=== PATIENT | male | born 1955 | race Caucasian/White ===

== ENCOUNTER 2021-06-29 01:12 | Outpatient (CLI) | payer MEDICARE, SELFPAY ==
[2021-06-29 13:10] LABS: Source Nasal/Nares
[2021-06-29 17:02] LABS: COVID-19 PCR Negative (Negative)
== END 2021-06-29 01:13 | disposition home or self-care (01) ==
LOC: LBO 01:12
PROVIDERS: Family Medicine; PCP Family Medicine; Visit Provider Speech-Language Pathologist
DX: Z20.822 Contact with and (suspected) exposure to COVID-19 (principal)
CPT/HCPCS: 87635; U0005

== ENCOUNTER 2021-07-13 02:40 | Outpatient (CLI) | payer MEDICARE, SELFPAY ==
[2021-07-13 19:41] LABS: COVID-19 PCR Negative (Negative)
[2021-07-13 22:26] LABS: Source Nasopharynx
== END 2021-07-13 02:41 | disposition home or self-care (01) ==
PROVIDERS: PCP Family Medicine; Visit Provider Speech-Language Pathologist
DX: Z20.01 Contact with and (suspected) exposure to intestinal infectious diseases due to Escherichia coli (E. coli) (principal); Z20.822 Contact with and (suspected) exposure to COVID-19
CPT/HCPCS: 87635; U0005

== ENCOUNTER → 2021-07-14 01:42 | Outpatient (CLI) | payer MEDICARE, SELFPAY ==
--- NOTE | 2021-07-14 10:30 | ST.MBS_ITS ---
Date of Service Date of service: 07/14/21 Time of Service: 10:30 Modified Barium Swallow Study Findings: Videofluoroscopic Swallowing Evaluation / Modified Barium Swallow Study (VFSE/MBSS) Speech Language Pathology Report ? [place] Dr. 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 SUBJECTIVE: Ruy arrived on time, ambulating independently, unaccompanied. He reports that his only complaint currently remains related to pain with extensive voice use and when eating/drinking acidic foods/drinks (citrus) due to ulceration near his larynx. When further questioned, he does endorse some sensation of pharyngeal stasis which he reports has been a long time, even before any of this. OBJECTIVE: Videofluoroscopic Swallow Evaluation (VFSE/MBSS) was conducted in the lateral projection by Speech-Language Pathologist, in collaboration with Radiologist, to evaluate oropharyngeal swallow function. Anatomic view under fluoroscopy: WFL ? PO barium contrast trials: Oral barium water soluble contrast was administered as follows: IDDSI Level 0 Varibar thin liquid (40% w/v) IDDSI Level 4 Varibar pudding/pureed/extremely thick (40% w/v) IDDSI Level 7 Regular Solid: 1/2 morgan cracker coated in 3 mL Varibar pudding; ? PHYSIOLOGIC FINDINGS Oral Phase 1 Lip Closure: 0-No labial escape 2 Tongue Control: 2- Posterior escape of less than half of bolus ? 3 Bolus Preparation/Mastication: 0- Timely and efficient chewing/mashing ? 4 Bolus Transport/Lingual Motion: 1- Delayed initiation of tongue motion (borderline) ? 5 Oral residue: 1- Trace residue lining oral structures 2- Residue collection on oral structures (noting x2 piecemeal deglutition of puree) Location: tongue ? 6 Initiation of pharyngeal swallow:? Variable: 1- Bolus head in valleculae 2- Bolus head at posterior laryngeal surface of epiglottis ? ? Pharyngeal Phase ? 7 Velar Elevation: 0- No bolus between soft palate and pharyngeal wall ? 8 Laryngeal Elevation:? 1- Partial superior movement of thyroid cartilage with partial approximation of arytenoids to epiglottic petiole 9 Anterior Hyoid Excursion: 1- Partial anterior movement (increases with bolus size) 10 Epiglottic Movement:? 1- Partial? inversion ? 11 Laryngeal Vestibule Closure: 1- Incomplete; narrow column of air/contrast in laryngeal vestibule (consecutive sips only) Penetration (observed only during consecutive/large volume sips thin liquids) occurs during initial swallow onset from current bolus 12 Pharyngeal Stripping Wave:? 1- Present; diminished 13 Pharyngeal Contraction: DNT; lack of AP view ? 14 PES/UES Opening:? 0- Complete distension and complete duration; no obstruction of flow 15 Tongue Base Retraction: 2- Narrow column of contrast between tongue base and posterior pharyngeal wall ? 16 Pharyngeal residue:? 2- Collection of residue within or on pharyngeal structures (primarily with liquids) Location: Tongue base, Valleculae, Pharyngeal wall ? [place] Pharyngeal Residue Severity Rating Scale (YPRS) (Esmer, et al, 2015) Vallecula Residue Severity II Trace 1-5% Trace coating of the mucosa Pyriform Sinus Residue Severity II Trace 1-5% Trace coating of the mucosa ? Esophageal Phase ? 17 Esophageal Clearance Upright Position: DNT; lack of AP view NOTE: This study was performed for interpretation only of the oropharyngeal and pharyngoesophageal domains of swallowing. It is not intended to diagnose any other radiologic abnormalities or substitute for a formal esophagram study. ? Overall 8-Point Penetration-Aspiration Scale (PAS) (Darrink, et al, 1996) 1 - No material enters the airway. (puree/solids) 2 - Material enters the airway, remains above the vocal folds, and is ejected? from the airway. (thin liquid only - trace penetration) 3 - Material enters the airway, remains above the vocal folds, and is not? ejected from the airway. 4 - Material enters the airway, contacts the vocal folds, and is ejected from the? airway. 5 - Material enters the airway, contacts the vocal folds, and is not ejected from? the airway. 6 - Material enters the airway, passes below the vocal folds, and is ejected into? the larynx or out of the airway. 7 - Material enters the airway, passes below the vocal folds, and is not ejected? from the trachea despite effort. 8 - Material enters the airway, passes below the vocal folds, and no effort is? made to eject. ? Clinical Indicator(s) of Prandial/Postprandial Aspiration: N/A DIGEST Scale Rating (O'Bryant, et al, 1999) DIGEST Score: Safety Grade 0 / Efficiency Grade 1 = Summary Grade 1, Overall Mild Pharyngeal Impairment (0=No Impairment, 1=Mild, 2=Moderate, 3=Severe, 4=Life Threatening) The Dynamic Imaging Grade of Swallowing Toxicity (DIGEST) Score represents a set of structured criteria primarily validated for head and neck cancer patients to grade the interaction of safety, efficiency, and overall impairment of the pharyngeal swallow, meant to assist in prioritization of targets for dysphagia treatment planning. (Reanna, et al. Cancer. 2017;123(1):62-70) Note: - Above score represents swallowing events without application of compensatory techniques ? Trialed Compensatory Swallow Strategies & Outcome: Maneuvers 3-second Preparatory Set - neither successful nor unsuccessful Secondary saliva swallow x1- successful for liquids, but not necessary if effortful swallow completed Effortful Swallow - Successful to reduce pharyngeal stasis (which was borderline trace to begin with). ? Bolus Modifications Reduced Volume - successful to avoid laryngeal penetration Dysphagia Outcome and Severity Scale (TARA) LEVEL 7 - Full PO: normal diet - Normal in all situations LEVEL 6 - Full PO: normal diet - Within functional limits/modified independence LEVEL 5 - Full PO: modified diet and/or independence - Mild dysphagia; Distant supervision, may need 1 diet consistency restricted LEVEL 4 - Full PO: modified diet and/or independence - Mild-moderate dysphagia; Intermittent supervision/cueing, 1 or 2 consistencies restricted LEVEL 3 - Full PO: modified diet and/or independence - Moderate dysphagia; Total assist, supervision, or strategies 2 or more diet consistencies restricted LEVEL 2 - Nonoral nutrition necessary - Moderate-severe dysphagia; Maximum assistance or use of strategies with partial PO only (tolerates at least 1 consistency safely with total use of strategies) LEVEL 1 - Nonoral nutrition necessary - Severe dysphagia; NPO, unable to tolerate any PO safely] ? IMPRESSIONS: Mild oropharyngeal dysphagia, likely [id number]; dysphagia presentation likely due to tongue base lesion, pain, ?normal aging. Swallow safety is largely preserved; swallow efficiency is only mildly impacted with liquids. Patient appears to be at low risk for potential aspiration PNA, pulmonary compromise and low risk for malnutrition, low risk for dehydration, hitesh given placement of PEG tube for cancer treatment. Diet modification, non-oral nutrition is, is not indicated at this time (this may change as treatment progresses). Swallow prognosis is good/fair given age, anticipated effects of chemo-radiation, and reported adherence to HEP and pending patient/caregiver training in risk management as outlined. Patient appears to be a good candidate for continued behavioral swallow rehabilitation. ? PLAN/RECOMMENDATIONS: Diet recommendation: IDDSI Level 7-Regular Solids 0-Thin Liquids, 1-Slightly Thick Liquids, 2-Mildly Thick Liquids, 3-Moderately Thick Liquids, 4-Extremely Thick Liquids, N/A - NPO] Please see further details at [email or web address] Diet texture modification is per patient's preference; please adjust diet textures at patient's discretion & collaboration with care team. ? Risk Management: Small bites, approx [id number] Small sips, approx 10 mL Control risk factors for aspiration pneumonia via (a) thorough oral hygiene & (b) maintaining physical mobility as tolerated ? Specialist referrals: n/a ? Therapy: Recommend subsequent outpatient session with treating SPIKE MACHINE OPERATOR to review results of today's exam especially as relate to HEP (tongue base retraction, hyo-laryngeal motility). Goal: Defer to treating SPIKE MACHINE OPERATOR Follow-up exam: Following completion of XRT; per discretion of treating SPIKE MACHINE OPERATOR ? Thank you for allowing me to take part in this patient's care. Please feel free to contact me with any questions/concerns. ? Roxanna German MS [facility]3]-SPIKE MACHINE OPERATOR Speech Language Pathologist [phone] Coding CPT Codes MOTION FLUOROSCOPY/SWALLOW - [id number] ([id number])
[2021-07-14] MEDS: Barium Sulfate Oral Paste 40% W/V 230 ML TUBE 20 ML PO (11:12)
[2021-07-14] MEDS: Barium Sulfate 81% w/w for Oral Suspension 148 GM BTL 30 GM PO (11:12)
--- NOTE | 2021-07-14 11:18 | DI.RAD_ITS ---
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 COMPARISON: No exams were available for comparison FINDINGS: Fluoroscopy was provided for modified barium swallow. Please see the speech pathologist report. IMPRESSION: RADIATION DOSE DELIVERED: wan Romero=4.15 mGy Total DLP
== END ==
PROVIDERS: PCP Family Medicine; Visit Provider Internal Medicine Hematology & Oncology
DX: C01 Malignant neoplasm of base of tongue (principal); R13.12 Dysphagia, oropharyngeal phase
CPT/HCPCS: 92526; 74221

== ENCOUNTER 2021-07-21 02:08 | Outpatient (RCR) | payer MEDICARE, SELFPAY ==
[2021-07-21] MEDS: Normal Saline Flush 10 ML SYR IVP (10:30)
[2021-07-21 10:31] LABS: Abs Immature Grans 0.02 10^3/uL (0.0-0.06); Absolute Basophil Count 0.05 10^3/uL (0.0-0.2); Absolute Eosinophil Count 0.19 10^3/uL (0.0-0.7); Absolute Lymphocyte Count 2.15 10^3/uL (1.2-3.4); Absolute Monocyte Count 0.64 10^3/uL (0.1-0.8); Absolute Neutrophil Count 4.61 10^3/uL (1.2-6.7); Basophils % 0.7; Eosinophils % 2.5; HCT 43.8 % (40.0-50.0); HGB 14.1 g/dL (13.5-17.5); Immature Grans % 0.3; Lymphocytes % 28.1; MCH 28.3 pg (27.0-33.0); MCHC 32.2 % (32.0-36.0); MCV 88 fL (80-95); MPV 10.7 fL (8.0-11.0); Monocytes % 8.4; Platelet Count 245 10^3/uL (130-400); RBC 4.99 10^6/uL (4.36-5.78); RDW 14.1 % (11.8-14.1); RDW-SD 45.2 fL; WBC 7.66 10^3/uL (4.4-10.8)
[2021-07-21 10:44] LABS: ALT 26 U/L (16-63); AST 17 U/L (15-37); Albumin 3.7 g/dL (3.4-5.0); Alkaline Phosphatase 94 U/L (46-116); BUN 18 mg/dL (7-18); Bilirubin, Total 0.6 mg/dL (0.2-1.0); Calcium 9.2 mg/dL (8.5-10.1); Chloride 104 mmol/L (98-107); Glucose 96 mg/dL (74-106); Magnesium 2.2 mg/dL (1.8-2.4); Potassium 4.4 mmol/L (3.5-5.1); Sodium 139 mmol/L (136-145)
== END 2021-07-21 23:59 | disposition home or self-care (01) ==
LOC: INF 02:08
PROVIDERS: PCP Family Medicine; Visit Provider Internal Medicine Hematology & Oncology
DX: C01 Malignant neoplasm of base of tongue (principal); Z45.2 Encounter for adjustment and management of vascular access device
CPT/HCPCS: 36591; 80053; 83735; 85025

== ENCOUNTER 2021-08-18 02:22 | Outpatient (RCR) | payer MEDICARE, SELFPAY ==
[2021-07-28] MEDS: Normal Saline Flush 10 ML SYR IVP (08:07)
[2021-07-28 08:09] LABS: Abs Immature Grans 0.05 10^3/uL (0.0-0.06); Absolute Basophil Count 0.03 10^3/uL (0.0-0.2); Absolute Eosinophil Count 0.14 10^3/uL (0.0-0.7); Absolute Lymphocyte Count 1.53 10^3/uL (1.2-3.4); Absolute Monocyte Count 1.07 10^3/uL (0.1-0.8); Absolute Neutrophil Count 6.57 10^3/uL (1.2-6.7); Basophils % 0.3; Eosinophils % 1.5; HCT 41.5 % (40.0-50.0); HGB 13.7 g/dL (13.5-17.5); Immature Grans % 0.5; Lymphocytes % 16.3; MCH 28.7 pg (27.0-33.0); MCV 87 fL (80-95); Monocytes % 11.4; Platelet Count 166 10^3/uL (130-400); RBC 4.77 10^6/uL (4.36-5.78); RDW 13.7 % (11.8-14.1); WBC 9.39 10^3/uL (4.4-10.8)
[2021-07-28 08:26] LABS: ALT 24 U/L (16-63); AST 11 U/L (15-37); Albumin 3.4 g/dL (3.4-5.0); Alkaline Phosphatase 103 U/L (46-116); Anion Gap 6.7 mmol/L (3-11); BUN 24 mg/dL (7-18); Bilirubin, Total 0.7 mg/dL (0.2-1.0); CO2 29.3 mmol/L (21.0-32.0); CREATININE 0.9 mg/dL (0.70-1.30); Calcium 8.4 mg/dL (8.5-10.1); Chloride 103 mmol/L (98-107); Glucose 99 mg/dL (74-106); Magnesium 1.8 mg/dL (1.8-2.4); Sodium 139 mmol/L (136-145); Total Protein 6.5 g/dL (6.4-8.2)
[2021-08-03] MEDS: Normal Saline Flush 10 ML SYR IVP (14:35)
[2021-08-03 14:48] LABS: Abs Immature Grans 0.04 10^3/uL (0.0-0.06); Absolute Basophil Count 0.02 10^3/uL (0.0-0.2); Absolute Eosinophil Count 0.11 10^3/uL (0.0-0.7); Absolute Lymphocyte Count 1.21 10^3/uL (1.2-3.4); Absolute Monocyte Count 0.68 10^3/uL (0.1-0.8); Absolute Neutrophil Count 6.03 10^3/uL (1.2-6.7); Basophils % 0.2; Eosinophils % 1.4; HCT 38.5 % (40.0-50.0); Immature Grans % 0.5; MCH 29.1 pg (27.0-33.0); MCHC 33.8 % (32.0-36.0); MCV 86 fL (80-95); MPV 10.8 fL (8.0-11.0); Monocytes % 8.4; Neutrophils % 74.5; Platelet Count 125 10^3/uL (130-400); RBC 4.47 10^6/uL (4.36-5.78); RDW 14.2 % (11.8-14.1); RDW-SD 44.6 fL; WBC 8.09 10^3/uL (4.4-10.8)
[2021-08-03 15:10] LABS: ALT 25 U/L (16-63); AST 13 U/L (15-37); Albumin 3.3 g/dL (3.4-5.0); Alkaline Phosphatase 85 U/L (46-116); Anion Gap 6.1 mmol/L (3-11); BUN 27 mg/dL (7-18); Bilirubin, Total 0.6 mg/dL (0.2-1.0); CO2 29.9 mmol/L (21.0-32.0); CREATININE 0.9 mg/dL (0.70-1.30); Calcium 8.6 mg/dL (8.5-10.1); Chloride 103 mmol/L (98-107); Glucose 126 mg/dL (74-106); Magnesium 1.9 mg/dL (1.8-2.4); Potassium 3.5 mmol/L (3.5-5.1); Sodium 139 mmol/L (136-145); Total Protein 6.2 g/dL (6.4-8.2)
[2021-08-11] MEDS: Normal Saline Flush 10 ML SYR IVP (07:40)
[2021-08-11 08:17] LABS: Abs Immature Grans 0.03 10^3/uL (0.0-0.06); Absolute Basophil Count 0.03 10^3/uL (0.0-0.2); Absolute Eosinophil Count 0.05 10^3/uL (0.0-0.7); Absolute Lymphocyte Count 0.48 10^3/uL (1.2-3.4); Absolute Monocyte Count 0.43 10^3/uL (0.1-0.8); Absolute Neutrophil Count 5.55 10^3/uL (1.2-6.7); Basophils % 0.5; Eosinophils % 0.8; HCT 38.1 % (40.0-50.0); HGB 12.6 g/dL (13.5-17.5); Immature Grans % 0.5; Lymphocytes % 7.3; MCH 28.7 pg (27.0-33.0); MCHC 33.1 % (32.0-36.0); MCV 87 fL (80-95); MPV 10.2 fL (8.0-11.0); Monocytes % 6.5; Neutrophils % 84.4; Platelet Count 118 10^3/uL (130-400); RBC 4.39 10^6/uL (4.36-5.78); RDW 14.5 % (11.8-14.1); WBC 6.57 10^3/uL (4.4-10.8)
[2021-08-11 08:29] LABS: ALT 19 U/L (16-63); AST 11 U/L (15-37); Alkaline Phosphatase 81 U/L (46-116); Anion Gap 6.2 mmol/L (3-11); BUN 18 mg/dL (7-18); Bilirubin, Total 0.8 mg/dL (0.2-1.0); CO2 28.8 mmol/L (21.0-32.0); CREATININE 0.9 mg/dL (0.70-1.30); Calcium 8.1 mg/dL (8.5-10.1); Chloride 102 mmol/L (98-107); Glucose 97 mg/dL (74-106); Magnesium 1.7 mg/dL (1.8-2.4); Potassium 3.7 mmol/L (3.5-5.1); Sodium 137 mmol/L (136-145); Total Protein 5.8 g/dL (6.4-8.2)
[2021-08-18 07:38] LABS: Abs Immature Grans 0.02 10^3/uL (0.0-0.06); Absolute Basophil Count 0.02 10^3/uL (0.0-0.2); Absolute Eosinophil Count 0.05 10^3/uL (0.0-0.7); Absolute Lymphocyte Count 0.79 10^3/uL (1.2-3.4); Absolute Monocyte Count 0.36 10^3/uL (0.1-0.8); Absolute Neutrophil Count 4.15 10^3/uL (1.2-6.7); Basophils % 0.4; Eosinophils % 0.9; HCT 36.8 % (40.0-50.0); HGB 12.3 g/dL (13.5-17.5); Immature Grans % 0.4; Lymphocytes % 14.7; MCH 28.8 pg (27.0-33.0); MCHC 33.4 % (32.0-36.0); MCV 86 fL (80-95); MPV 10.2 fL (8.0-11.0); Monocytes % 6.7; Neutrophils % 76.9; Platelet Count 104 10^3/uL (130-400); RBC 4.27 10^6/uL (4.36-5.78); RDW 14.7 % (11.8-14.1); RDW-SD 45.1 fL; WBC 5.39 10^3/uL (4.4-10.8)
[2021-08-18] MEDS: Normal Saline Flush 10 ML SYR IVP (07:43)
[2021-08-18 07:55] LABS: ALT 20 U/L (16-63); AST 11 U/L (15-37); Albumin 3.3 g/dL (3.4-5.0); Alkaline Phosphatase 92 U/L (46-116); Anion Gap 4.3 mmol/L (3-11); BUN 17 mg/dL (7-18); Bilirubin, Total 0.7 mg/dL (0.2-1.0); CO2 30.7 mmol/L (21.0-32.0); CREATININE 0.9 mg/dL (0.70-1.30); Calcium 8.7 mg/dL (8.5-10.1); Chloride 103 mmol/L (98-107); Glucose 98 mg/dL (74-106); Potassium 4.1 mmol/L (3.5-5.1); Sodium 138 mmol/L (136-145); Total Protein 6.5 g/dL (6.4-8.2)
== END 2021-08-20 23:59 | disposition home or self-care (01) ==
LOC: INF 02:22
PROVIDERS: PCP Family Medicine; Visit Provider Internal Medicine Hematology & Oncology
DX: C01 Malignant neoplasm of base of tongue (principal); Z45.2 Encounter for adjustment and management of vascular access device
CPT/HCPCS: 36591; 80053; 83735; 85025

== ENCOUNTER 2021-09-14 09:10 | Outpatient (RCR) | payer MEDICARE, SELFPAY ==
[2021-08-25 08:00] LABS: Abs Immature Grans 0.01 10^3/uL (0.0-0.06); Absolute Basophil Count 0.01 10^3/uL (0.0-0.2); Absolute Eosinophil Count 0.03 10^3/uL (0.0-0.7); Absolute Lymphocyte Count 0.67 10^3/uL (1.2-3.4); Absolute Monocyte Count 0.33 10^3/uL (0.1-0.8); Absolute Neutrophil Count 2.81 10^3/uL (1.2-6.7); Basophils % 0.3; Eosinophils % 0.8; HGB 12.2 g/dL (13.5-17.5); Immature Grans % 0.3; Lymphocytes % 17.4; MCH 29.5 pg (27.0-33.0); MCHC 34.9 % (32.0-36.0); MCV 85 fL (80-95); Monocytes % 8.5; Neutrophils % 72.7; Platelet Count 106 10^3/uL (130-400); RBC 4.13 10^6/uL (4.36-5.78); RDW 15.6 % (11.8-14.1); RDW-SD 46.1 fL; WBC 3.86 10^3/uL (4.4-10.8)
[2021-08-25] MEDS: Normal Saline Flush 10 ML SYR IVP (08:02)
[2021-08-25 08:14] LABS: ALT 19 U/L (16-63); AST 13 U/L (15-37); Albumin 3.5 g/dL (3.4-5.0); Alkaline Phosphatase 76 U/L (46-116); Anion Gap 5.1 mmol/L (3-11); BUN 16 mg/dL (7-18); Bilirubin, Total 0.6 mg/dL (0.2-1.0); CO2 30.9 mmol/L (21.0-32.0); CREATININE 0.8 mg/dL (0.70-1.30); Calcium 8.7 mg/dL (8.5-10.1); Chloride 102 mmol/L (98-107); Glucose 92 mg/dL (74-106); Magnesium 1.8 mg/dL (1.8-2.4); Potassium 4.3 mmol/L (3.5-5.1); Sodium 138 mmol/L (136-145); Total Protein 6.3 g/dL (6.4-8.2)
[2021-09-01] MEDS: Normal Saline Flush 10 ML SYR IVP (07:25)
[2021-09-01 07:43] LABS: Abs Immature Grans 0.02 10^3/uL (0.0-0.06); Absolute Basophil Count 0.01 10^3/uL (0.0-0.2); Absolute Eosinophil Count 0.02 10^3/uL (0.0-0.7); Absolute Lymphocyte Count 0.65 10^3/uL (1.2-3.4); Absolute Monocyte Count 0.45 10^3/uL (0.1-0.8); Absolute Neutrophil Count 2.52 10^3/uL (1.2-6.7); Basophils % 0.3; Eosinophils % 0.5; HCT 32.8 % (40.0-50.0); Immature Grans % 0.5; Lymphocytes % 17.7; MCH 29.2 pg (27.0-33.0); MCHC 33.5 % (32.0-36.0); MCV 87 fL (80-95); MPV 10.3 fL (8.0-11.0); Monocytes % 12.3; Neutrophils % 68.7; Platelet Count 109 10^3/uL (130-400); RBC 3.77 10^6/uL (4.36-5.78); RDW 16.9 % (11.8-14.1); RDW-SD 50.3 fL; WBC 3.67 10^3/uL (4.4-10.8)
[2021-09-01 07:56] LABS: ALT 22 U/L (16-63); AST 13 U/L (15-37); Albumin 3.4 g/dL (3.4-5.0); Alkaline Phosphatase 83 U/L (46-116); Anion Gap 6.7 mmol/L (3-11); BUN 15 mg/dL (7-18); Bilirubin, Total 0.8 mg/dL (0.2-1.0); CO2 31.3 mmol/L (21.0-32.0); CREATININE 0.8 mg/dL (0.70-1.30); Calcium 8.6 mg/dL (8.5-10.1); Chloride 102 mmol/L (98-107); Glucose 99 mg/dL (74-106); Magnesium 1.6 mg/dL (1.8-2.4); Potassium 4.3 mmol/L (3.5-5.1); Sodium 140 mmol/L (136-145); Total Protein 6.3 g/dL (6.4-8.2)
[2021-09-14] MEDS: Normal Saline Flush 10 ML SYR IVP (09:11)
[2021-09-14 09:31] LABS: Abs Immature Grans 0.02 10^3/uL (0.0-0.06); Absolute Basophil Count 0.01 10^3/uL (0.0-0.2); Absolute Eosinophil Count 0.02 10^3/uL (0.0-0.7); Absolute Lymphocyte Count 0.55 10^3/uL (1.2-3.4); Absolute Monocyte Count 0.65 10^3/uL (0.1-0.8); Absolute Neutrophil Count 3.58 10^3/uL (1.2-6.7); Basophils % 0.2; Eosinophils % 0.4; HCT 27.7 % (40.0-50.0); HGB 9.4 g/dL (13.5-17.5); Immature Grans % 0.4; Lymphocytes % 11.4; MCH 29.8 pg (27.0-33.0); MCHC 33.9 % (32.0-36.0); MCV 88 fL (80-95); MPV 10.6 fL (8.0-11.0); Monocytes % 13.5; Neutrophils % 74.1; Platelet Count 125 10^3/uL (130-400); RBC 3.15 10^6/uL (4.36-5.78); RDW 19.3 % (11.8-14.1); RDW-SD 59.6 fL; WBC 4.83 10^3/uL (4.4-10.8)
[2021-09-14 09:49] LABS: ALT 30 U/L (16-63); AST 21 U/L (15-37); Albumin 3.1 g/dL (3.4-5.0); Alkaline Phosphatase 91 U/L (46-116); Anion Gap 6.9 mmol/L (3-11); BUN 19 mg/dL (7-18); Bilirubin, Total 0.9 mg/dL (0.2-1.0); CO2 29.1 mmol/L (21.0-32.0); Calcium 8.6 mg/dL (8.5-10.1); Chloride 102 mmol/L (98-107); Glucose 125 mg/dL (74-106); Magnesium 1.9 mg/dL (1.8-2.4); Potassium 3.5 mmol/L (3.5-5.1); Sodium 138 mmol/L (136-145); Total Protein 6.3 g/dL (6.4-8.2)
== END 2021-09-20 23:59 | disposition home or self-care (01) ==
LOC: INF 09:10
PROVIDERS: PCP Family Medicine; Visit Provider Internal Medicine Hematology & Oncology
DX: C01 Malignant neoplasm of base of tongue (principal); Z45.2 Encounter for adjustment and management of vascular access device
CPT/HCPCS: 36591; 80053; 83735; 85025